=== PATIENT | male | born 1940 | race Caucasian/White ===

== ENCOUNTER 2018-06-07 10:18 | Emergency (ER) | payer OTHER | END 2018-06-07 11:57 | disposition home or self-care (01) | LOC: E/R 10:18 | DX: R33.9 Retention of urine, unspecified (principal); Z87.891 Personal history of nicotine dependence | CPT/HCPCS: 51702; 99283-25 ==

== ENCOUNTER 2018-06-22 08:49 | Emergency (ER) | payer OTHER ==
[2018-06-22 09:20] LABS: ADD MAN DIFF? NO
[2018-06-22 09:22] LABS: ABNORMAL IP MESSAGE 1; BASOPHILS % 0.1 % (0.0-2.0); EOSINOPHILS # 0.1 10^3/ul (0.0-0.5); HEMATOCRIT 44.8 % (42.0-52.0); HEMOGLOBIN 14.8 g/dl (14.0-18.0); LYMPHOCYTES # 0.6 10^3/ul (0.8-2.9); LYMPHOCYTES % 6.9 % (15.0-51.0); MEAN CORPUSCULAR HEMOGLOBIN 30.6 pg (29.0-33.0); MEAN CORPUSCULAR VOLUME 92.6 fl (82.0-101.0); MEAN PLATELET VOLUME 8.4 fl (7.4-10.4); MONOCYTE # 0.6 10^3/ul (0.3-0.9); MONOCYTES % 6.8 % (0.0-11.0); NEUTROPHIL # 7.1 10^3/ul (1.6-7.5); NEUTROPHILS % 84.6 % (39.0-77.0); PLATELET COUNT 309 10^3/UL (140-415); POSITIVE DIFF @See below; RED BLOOD COUNT 4.84 10^6/ul (4.70-6.10); RED CELL DISTRIBUTION WIDTH 11.7 % (11.5-14.5)
[2018-06-22 09:22] LABS: WHITE BLOOD COUNT 8.4 10^3/ul (4.8-10.8)
[2018-06-22] MEDS: SOD CHLORIDE 0.9% 500 ML IV (09:34)
[2018-06-22] MEDS: KETOROLAC 15 MG INJ IV (09:37)
[2018-06-22] MEDS: ONDANSETRON 4 MG INJ IV (09:37)
[2018-06-22] MEDS: morphine 4 MG/ML VIAL IV (09:37)
[2018-06-22 09:39] LABS: ADD UMIC YES; UR ASCORBIC ACID NEGATIVE (NEGATIVE); UR BILIRUBIN (Dip) NEGATIVE (NEGATIVE); UR BLOOD (Dip) 1+ mg/dL (NEGATIVE); UR CLARITY SLIGHTLY CLOUDY (CLEAR); UR COLOR YELLOW (YELLOW); UR GLUCOSE (Dip) NEGATIVE (NEGATIVE); UR KETONES (Dip) NEGATIVE (NEGATIVE); UR LEUKOCYTE ESTERASE (Dip) NEGATIVE Leu/ul (NEGATIVE); UR NITRITE (Dip) NEGATIVE (NEGATIVE); UR RBC 4 /HPF (0-5); UR SPECIFIC GRAVITY (Dip) 1.008 (1.003-1.030); UR TOTAL PROTEIN (Dip) NEGATIVE (NEGATIVE); UR UROBILINOGEN (Dip) NEGATIVE (NEGATIVE); UR WBC 4 /HPF (0-5)
[2018-06-22 09:55] LABS: ALANINE AMINOTRANSFERASE 17 IU/L (13-69); ALBUMIN 4.5 g/dl (3.3-4.9); ALBUMIN/GLOBULIN RATIO 1.28; ALKALINE PHOSPHATASE 84 IU/L (42-121); ANION GAP 12 (5-13); ASPARTATE AMINO TRANSFERASE 29 IU/L (15-46); BILIRUBIN,INDIRECT 0.8 mg/dl (0-1.1); BILIRUBIN,TOTAL 0.8 mg/dl (0.2-1.3); BLOOD UREA NITROGEN 14 mg/dl (7-20); CALCIUM 9.2 mg/dl (8.4-10.2); CARBON DIOXIDE 23 mmol/L (21-31); CHLORIDE 105 mmol/L (97-110); CREATININE 0.85 mg/dl (0.61-1.24); GLUCOSE 127 mg/dl (70-220); LIPASE 78 U/L (23-300); POTASSIUM 4.2 mmol/L (3.5-5.1); SODIUM 140 mmol/L (135-144)
[2018-06-22 10:07] LABS: TROPONIN-I < 0.012 ng/ml (0.000-0.120)
== END 2018-06-22 11:03 | disposition home or self-care (01) ==
LOC: E/R 08:49
DX: R33.9 Retention of urine, unspecified (principal); R10.30 Lower abdominal pain, unspecified; R03.0 Elevated blood-pressure reading, without diagnosis of hypertension; R10.9 Unspecified abdominal pain
CPT/HCPCS: 36415; 71045; 80053; 81001; 83690; 84484; 85025; 99285-25

== ENCOUNTER 2018-08-10 10:41 | Inpatient (IN) | payer OTHER ==
[2018-08-10] MEDS ORDERED: CEFAZOLIN 1 GM INJ (12:00)
[2018-08-10] MEDS ORDERED: MIDAZOLAM 1 MG/ML 2 ML INJ (12:32)
[2018-08-10] MEDS ORDERED: FENTAnyl 50 MCG/ML VIAL ×3 (12:32→13:50)
[2018-08-10] MEDS: CEFTRIAXONE 1 GM/NS 50 ML IVPB ×2 (13:00→17:16)
[2018-08-10] MEDS ORDERED: ROCURONIUM 50 MG INJ (14:25)
[2018-08-10] MEDS ORDERED: LIDOCAINE 2% (SDV) 5 ML INJ (14:25)
[2018-08-10] MEDS ORDERED: ETOMIDATE 20 MG INJ (14:25)
[2018-08-10] MEDS ORDERED: NEOSTIGMINE 3 MG/3 ML SYRINGE (14:26)
[2018-08-10] MEDS ORDERED: GLYCOPYRROLATE 0.4 MG INJ (14:26)
[2018-08-10] MEDS ORDERED: ONDANSETRON 4 MG INJ (14:27)
[2018-08-10] MEDS: DEXTROSE 5%-0.45% NACL 1,000 ML IV ×2 (14:33→17:17)
[2018-08-10] MEDS ORDERED: DIPHENHYDRAMINE 50 MG INJ IV (15:00)
[2018-08-10] MEDS ORDERED: ONDANSETRON 4 MG INJ IV (15:00)
[2018-08-10] MEDS ORDERED: HYDROmorphONE 1 MG/5 ML IV SYRINGE IV (15:00)
[2018-08-10] MEDS ORDERED: MAGNESIUM HYDROXIDE 30ML CUP PO (15:00)
[2018-08-10] MEDS ORDERED: LABETALOL HCL 20MG INJ IV (15:00)
[2018-08-10] MEDS ORDERED: DOCUSATE SODIUM 100 MG CAP PO (15:00)
[2018-08-10] MEDS ORDERED: CEFTRIAXONE 1 GM INJ IVPB (15:00)
[2018-08-10] MEDS ORDERED: METOCLOPRAMIDE 10 MG INJ IV (15:00)
[2018-08-10] MEDS: HYDROmorphONE 1 MG/5 ML IV SYRINGE IV ×2 (15:28→15:40)
[2018-08-10] MEDS: hydrALAzine 20 MG INJ IV (15:29)
[2018-08-10] MEDS: FENTAnyl 50 MCG/ML VIAL IV (15:48)
[2018-08-10 19:25] LABS: MAGNESIUM 1.9 mg/dl (1.7-2.5)
[2018-08-10 19:25] LABS: PHOSPHORUS 3.8 mg/dl (2.5-4.9)
[2018-08-11] MEDS: ONDANSETRON 4 MG INJ IV (00:46)
[2018-08-11 05:28] LABS: ADD MAN DIFF? NO
[2018-08-11 05:36] LABS: WHITE BLOOD COUNT 8.6 10^3/ul (4.8-10.8)
[2018-08-11 05:36] LABS: ABNORMAL IP MESSAGE 1; BASOPHILS % 0.1 % (0.0-2.0); EOSINOPHILS # 0.1 10^3/ul (0.0-0.5); EOSINOPHILS % 0.8 % (0.0-7.0); HEMATOCRIT 37.6 % (42.0-52.0); HEMOGLOBIN 12.2 g/dl (14.0-18.0); LYMPHOCYTES # 0.4 10^3/ul (0.8-2.9); LYMPHOCYTES % 4.3 % (15.0-51.0); MEAN CORPUSCULAR HEMOGLOBIN 30.7 pg (29.0-33.0); MEAN CORPUSCULAR HGB CONC 32.4 g/dl (32.0-37.0); MEAN CORPUSCULAR VOLUME 94.5 fl (82.0-101.0); MONOCYTE # 0.7 10^3/ul (0.3-0.9); MONOCYTES % 7.5 % (0.0-11.0); NEUTROPHIL # 7.5 10^3/ul (1.6-7.5); PLATELET COUNT 231 10^3/UL (140-415); POSITIVE DIFF @See below; RED BLOOD COUNT 3.98 10^6/ul (4.70-6.10); RED CELL DISTRIBUTION WIDTH 11.9 % (11.5-14.5)
[2018-08-11 11:02] LABS: ANION GAP 5 (5-13); BLOOD UREA NITROGEN 9 mg/dl (7-20); CALCIUM 8.4 mg/dl (8.4-10.2); CARBON DIOXIDE 29 mmol/L (21-31); CHLORIDE 107 mmol/L (97-110); CREATININE 0.81 mg/dl (0.61-1.24); GLUCOSE 90 mg/dl (70-220); POTASSIUM 3.9 mmol/L (3.5-5.1); SODIUM 141 mmol/L (135-144)
[2018-08-11] MEDS: HYDROCODONE/APAP (5/325) TAB PO (14:18)
[2018-08-11 14:56] LABS: ANION GAP 5 (5-13); BLOOD UREA NITROGEN 10 mg/dl (7-20); CALCIUM 8.2 mg/dl (8.4-10.2); CARBON DIOXIDE 27 mmol/L (21-31); CHLORIDE 109 mmol/L (97-110); CREATININE 0.75 mg/dl (0.61-1.24); GLUCOSE 118 mg/dl (70-220); POTASSIUM 3.8 mmol/L (3.5-5.1); SODIUM 141 mmol/L (135-144)
[2018-08-11] MEDS ORDERED: CEFTRIAXONE 1 GM/NS 50 ML IVPB (15:00)
[2018-08-11] MEDS: CEFTRIAXONE 1 GM/NS 50 ML IVPB (15:30)
== END 2018-08-11 16:45 | disposition home or self-care (01) | DRG 714 ==
LOC: REC 10:41 → MS1 16:34 → REC 16:34
PROVIDERS: Urology
PROC: 0VT08ZZ Resection of Prostate, Via Natural or Artificial Opening Endoscopic (ICD-10-PCS; principal; 2018-08-10 12:30)
DX: N40.1 Benign prostatic hyperplasia with lower urinary tract symptoms (principal); I10 Essential (primary) hypertension; E78.5 Hyperlipidemia, unspecified; R33.8 Other retention of urine
CPT/HCPCS: 80048; 83735; 84100; 85025; 87086; 88305; 99217